=== PATIENT | female | born 1945 | race Caucasian/White ===

== ENCOUNTER 2023-05-14 06:28 | Day surgery (SDC) | payer MEDICARE, OTHER, SELFPAY ==
[2023-05-14 10:19] VITALS: BMI 32.3
[2023-05-14 10:20] VITALS: BMI 32.3
[2023-05-14 10:21] VITALS: BP 136/92
[2023-05-14 10:38] LABS: Glucose - Point of Care 108 mg/dl (70-99)
[2023-05-14 12:31] VITALS: BP 131/64
[2023-05-14 12:45] VITALS: BP 136/71
[2023-05-14 13:00] VITALS: BP 150/63
== END 2023-05-14 13:15 | disposition home or self-care (01) ==
LOC: GI 06:28
PROVIDERS: ATTENDING PHYSICIAN Internal Medicine Gastroenterology; FAMILY PHYSICIAN Family Medicine
DX: K64.0 First degree hemorrhoids (principal); K57.30 Diverticulosis of large intestine without perforation or abscess without bleeding; D12.0 Benign neoplasm of cecum; D12.2 Benign neoplasm of ascending colon
CPT/HCPCS: 45390; 45385; 88305; 82962

== ENCOUNTER 2024-01-05 06:17 | Day surgery (SDC) | payer MEDICARE, OTHER, SELFPAY ==
[2024-01-05 08:18] VITALS: BP 147/71
[2024-01-05 08:38] LABS: Glucose - Point of Care 138 mg/dl (70-99)
[2024-01-05 10:15] VITALS: BP 126/62
[2024-01-05 10:30] VITALS: BP 138/48
[2024-01-05 10:37] VITALS: BP 140/66
== END 2024-01-05 10:50 | disposition home or self-care (01) ==
LOC: GI 06:17
PROVIDERS: ATTENDING PHYSICIAN Internal Medicine Gastroenterology
DX: Z12.11 Encounter for screening for malignant neoplasm of colon (principal); D12.3 Benign neoplasm of transverse colon; K57.30 Diverticulosis of large intestine without perforation or abscess without bleeding; K62.1 Rectal polyp; K64.0 First degree hemorrhoids; Z86.0101 Personal history of adenomatous and serrated colon polyps; Z98.890 Other specified postprocedural states
CPT/HCPCS: 45385; 45380; 88305; 82962